=== PATIENT | female | born 1970 | race Caucasian/White ===

== ENCOUNTER 2024-03-29 18:46 | Inpatient (IN) | payer OTHER, MEDICAID ==
[~2024-03-29] VITALS: Ht 165.1 cm; Wt 49.9 kg
[2024-03-29] MEDS: DICYCLOMINE 10 MG/5 ML ORAL SYR PO STA (21:31)
[2024-03-29] MEDS: MAGNESIUM/ALUMINUM HYDROXIDE/SIMETHICONE 30ML UDC PO STA (21:32)
[2024-03-29] MEDS: ONDANSETRON 4MG ODT PO STA (21:32)
[2024-03-29 22:19] LABS: CLARITY URINE CLOUDY (CLEAR); COLOR URINE YELLOW (YELLOW); GLUCOSE URINE NEGATIVE (NEGATIVE); KETONES URINE NEGATIVE (NEGATIVE); LEUKOCYTE ESTERASE URINE 1+ (NEGATIVE); NITRITE URINE NEGATIVE (NEGATIVE); OCCULT BLOOD URINE 1+ (NEGATIVE); PH URINE 7.5 (4.5-8.0); PROTEIN URINE NEGATIVE (NEGATIVE); SPECIFIC GRAVITY URINE 1.018 (1.005-1.030)
[2024-03-29 22:40] LABS: BACTERIA URINE TRACE; SQUAMOUS EPITHELIAL CELL URINE RARE /lpf (RARE/1+); WBC URINE 0-2 /hpf (0-2)
[2024-03-29 22:44] LABS: BASOPHILS % 0.4 % (0.0-2.0); EOSINOPHILS % 0.4 % (0.0-5.0); HEMATOCRIT. 39.1 % (36.0-48.0); HEMOGLOBIN. 12.8 g/dL (12.0-16.0); LYMPHOCYTES % 26.9 % (20.0-50.0); MEAN CORPUSCULAR HEMOGLOBIN 27.8 pg (28.0-32.0); MEAN CORPUSCULAR HGB CONC 32.8 g/dL (31.0-37.0); MEAN CORPUSCULAR VOLUME 84.6 fL (81.0-99.0); MEAN PLATELET VOLUME 9.1 fl (7.4-10.4); MONOCYTES % 6.8 % (2.0-8.0); NEUTROPHILS % 65.5 % (40.0-76.0); PLATELET 230 x1000/uL (130-400); RED BLOOD CELL COUNT 4.62 mill/uL (4.2-5.4); RED CELL DISTRIBUTION WIDTH 18.7 % (11.6-14.6); WHITE BLOOD COUNT 9.5 x1000/uL (4.5-11.0)
[2024-03-29 22:54] LABS: CHLORIDE 99 mEq/L (98-107); POTASSIUM 4.3 mEq/L (3.5-5.1); SODIUM 135 mEq/L (136-145)
[2024-03-29 22:55] LABS: CALCIUM 9.7 mg/dL (8.7-10.4); CARBON DIOXIDE 29 mEq/L (21-32)
[2024-03-29 22:56] LABS: PROTHROMBIN TIME 10.9 sec (9.6-11.0)
[2024-03-29 22:59] LABS: CREATININE 0.5 mg/dL (0.6-1.0)
[2024-03-29 23:00] LABS: GLUCOSE 99 mg/dL (70-105); UREA NITROGEN BLOOD 18 mg/dL (9-23)
[2024-03-29 23:02] LABS: ALANINE AMINOTRANSFERASE 18 IU/L (10-49); ALBUMIN 4.2 g/dL (3.2-4.8); ASPARTATE AMINOTRANSFERASE 12 IU/L (<34); BILIRUBIN DIRECT 0.1 mg/dL (<=3.0); BILIRUBIN TOTAL 0.5 mg/dL (0.1-1.0); PROTEIN TOTAL 6.5 g/dL (6.0-8.3)
[2024-03-29] MEDS ORDERED: POLY17PO3 MT (23:04)
[2024-03-29] MEDS ORDERED: SENN-371 MT (23:04)
[2024-03-29] MEDS ORDERED: DOCU-138 MT (23:04)
[2024-03-30] MEDS ORDERED: NA PHOS,M-B/NA PHOS,DI-BA ENEMA 118ML PR PRN (03:15)
[2024-03-30] MEDS ORDERED: IPRATROPIUM/ALBUTEROL 0.5-3(2.5)MG/3ML NEB HHN PRN (03:15)
[2024-03-30] MEDS ORDERED: ONDANSETRON HCL 4MG/2ML INJ IV PRN (03:15)
[2024-03-30] MEDS ORDERED: CLONIDINE 0.1MG TABLET PO PRN (03:15)
[2024-03-30] MEDS ORDERED: ACETAMINOPHEN 325MG TABLET PO PRN (03:15)
[2024-03-30] MEDS ORDERED: SODIUM CHLORIDE 0.9% 1,000 ML IV NR (03:30)
[2024-03-30 04:14] LABS: CREATINE KINASE 19 IU/L (34-145); PHOSPHORUS 4.8 mg/dL (2.5-4.9)
[2024-03-30] MEDS ORDERED: DEXTROSE 50% WATER 50ML SYRINGE IV PRN (04:30)
[2024-03-30 05:15] LABS: TROPONIN I HIGH SENSITIVITY < 4 ng/L (3.0-34)
[2024-03-30 06:19] LABS: CLARITY URINE TURBID (CLEAR); COLOR URINE YELLOW (YELLOW); GLUCOSE URINE NEGATIVE (NEGATIVE); KETONES URINE NEGATIVE (NEGATIVE); LEUKOCYTE ESTERASE URINE 1+ (NEGATIVE); NITRITE URINE NEGATIVE (NEGATIVE); OCCULT BLOOD URINE NEGATIVE (NEGATIVE); PROTEIN URINE NEGATIVE (NEGATIVE); SPECIFIC GRAVITY URINE 1.017 (1.005-1.030)
[2024-03-30 06:30] LABS: *AMPHETAMINES SCREEN URINE NEGATIVE (NEGATIVE)
[2024-03-30 06:31] LABS: *BARBITURATES SCREEN URINE NEGATIVE (NEGATIVE); *BENZODIAZEPINES SCREEN URINE PRESUMPTIVE POSITIVE (NEGATIVE)
[2024-03-30 06:32] LABS: *COCAINE SCREEN URINE NEGATIVE (NEGATIVE); CANNABINOID URINE SCREEN NEGATIVE (NEGATIVE); ECSTASY MDMA SCREEN URINE NEGATIVE (NEGATIVE); METHADONE URINE SCREEN NEGATIVE (NEGATIVE); OPIATES URINE SCREEN NEGATIVE (NEGATIVE); PHENCYCLIDINE URINE SCREEN NEGATIVE (NEGATIVE)
[2024-03-30 06:49] LABS: RBC URINE 0-2 /hpf (0-2); SQUAMOUS EPITHELIAL CELL URINE NONE SEEN /lpf (RARE/1+); WBC URINE 0-2 /hpf (0-2)
[2024-03-30 06:50] LABS: BACTERIA URINE TRACE
[2024-03-30] MEDS: LACTULOSE 20G/30ML UDC PO SCH (07:26)
[2024-03-30] MEDS: DICYCLOMINE HCL 10MG CAPSULE PO NR (07:26)
[2024-03-30 08:00] VITALS: BP 125/75; PULSE 75; RESP 18; TEMP 36.7; O2SAT 98
[2024-03-30 08:45] VITALS: BP 120/75; PULSE 70; RESP 18; TEMP 37.1; O2SAT 98
[2024-03-30] MEDS: BLOOD SUGAR DIAGNOSTIC STRIP TEST SCH (09:00)
[2024-03-30 10:24] VITALS: BP 120/75; PULSE 70; RESP 18; TEMP 37.1
[2024-03-30] MEDS: ENOXAPARIN 30MG/0.3ML SYR SUBCUT SCH (11:47)
[2024-03-30 12:00] VITALS: BP 98/73; PULSE 79; RESP 20; TEMP 36.7; O2SAT 97
[2024-03-30] MEDS ORDERED: ZOLP5TAB2 MT (12:13)
[2024-03-30] MEDS ORDERED: ARIP2TAB3 PO (12:13)
[2024-03-30] MEDS ORDERED: CLON1TAB2 MT (12:13)
[2024-03-30] MEDS: CLONAZEPAM 1MG TABLET PO SCH (15:33)
[2024-03-30 16:00] VITALS: BP 116/70; PULSE 81; RESP 18; TEMP 36.1; O2SAT 98
[2024-03-30 20:00] VITALS: BP 105/65; PULSE 80; RESP 18; TEMP 36.4
[2024-03-30] MEDS: FAMOTIDINE 20MG TABLET PO SCH (20:54)
[2024-03-31] VITALS: BP 112/68; PULSE 78; RESP 17; TEMP 36.6; O2SAT 97
[2024-03-31 06:58] LABS: CARBON DIOXIDE 23 mEq/L (21-32); CHLORIDE 100 mEq/L (98-107)
[2024-03-31 06:59] LABS: SODIUM 134 mEq/L (136-145)
[2024-03-31 07:00] LABS: CALCIUM 9.6 mg/dL (8.7-10.4)
[2024-03-31 07:04] LABS: CREATININE 0.4 mg/dL (0.6-1.0); GLUCOSE 92 mg/dL (70-105)
[2024-03-31 07:05] LABS: UREA NITROGEN BLOOD 14 mg/dL (9-23)
[2024-03-31 07:29] LABS: BASOPHILS % 0.4 % (0.0-2.0); EOSINOPHILS % 0.6 % (0.0-5.0); HEMATOCRIT. 37.8 % (36.0-48.0); HEMOGLOBIN. 12.2 g/dL (12.0-16.0); MEAN CORPUSCULAR HEMOGLOBIN 27.8 pg (28.0-32.0); MEAN CORPUSCULAR HGB CONC 32.3 g/dL (31.0-37.0); MEAN CORPUSCULAR VOLUME 85.9 fL (81.0-99.0); MEAN PLATELET VOLUME 9.7 fl (7.4-10.4); MONOCYTES % 6.8 % (2.0-8.0); NEUTROPHILS % 65.2 % (40.0-76.0); PLATELET 215 x1000/uL (130-400); RED CELL DISTRIBUTION WIDTH 18.6 % (11.6-14.6)
[2024-03-31] MEDS: SODIUM CHLORIDE 0.9% 1,000 ML IV SCH (09:00)
[2024-03-31] MEDS ORDERED: INFLUENZA VACCINE 05/PF 0.5 ML SYRINGE IM ONE (09:00)
[2024-03-31 12:00] VITALS: BP 103/65; PULSE 73; RESP 18; TEMP 36.4; O2SAT 97
[2024-03-31 16:00] VITALS: BP 95/62; PULSE 77; RESP 18; TEMP 36.1; O2SAT 98
[2024-03-31 20:00] VITALS: BP 126/80; PULSE 72; RESP 18; TEMP 36.7; O2SAT 98
[2024-04-01] VITALS: BP 125/82; PULSE 74; RESP 18; TEMP 36.6; O2SAT 97
[2024-04-01 04:00] VITALS: BP 112/78; PULSE 63; RESP 18; TEMP 36.7; O2SAT 85
[2024-04-01 07:45] VITALS: BP 98/55; PULSE 67; RESP 16; TEMP 36.7; O2SAT 100
[2024-04-01 12:00] VITALS: BP 102/62; PULSE 78; RESP 16; TEMP 36.7; O2SAT 100
[2024-04-01] MEDS: ACETAMINOPHEN 325MG TABLET PO PRN (13:06)
[2024-04-01 15:23] VITALS: BP 112/61; PULSE 68; TEMP 98.1; O2SAT 98
== END 2024-04-01 16:20 | disposition short-term general hospital (02) | DRG 389 ==
LOC: ER 18:46 → 6WST 03-30 02:57
PROVIDERS: ADMIT Internal Medicine; ATTEND Internal Medicine
DX: K56.41 Fecal impaction (principal); Z59.00 Homelessness unspecified; F20.9 Schizophrenia, unspecified; Z55.6 Problems related to health literacy; Z85.028 Personal history of other malignant neoplasm of stomach
CPT/HCPCS: 36415; 74176; 80048; 80076; 80305; 81003; 82550; 82962; 83735; 84100; 84484; 85025; 90686; 93970; 99285; A4663; J1650; J2405